=== PATIENT | female | born 1975 | race Caucasian/White ===

== ENCOUNTER 2018-03-24 08:44 | Day surgery (SDC) | payer MEDICAID ==
[2018-03-21 14:41] LABS: BASOPHILS # (AUTO) 0.1 X10'3 (0-0.2); BASOPHILS % (AUTO) 0.7 % (0-1); EOSINOPHILS # (AUTO) 0.2 X10'3 (0-0.9); EOSINOPHILS % (AUTO) 2.4 % (0-6); LYMPHOCYTES # (AUTO) 2.1 X10'3 (1.1-4.8); LYMPHOCYTES % (AUTO) 26.1 % (21-51); MEAN CORPUSCULAR HEMOGLOBIN 28.2 PG (27.0-31.0); MEAN CORPUSCULAR HGB CONC 33.7 % (33.0-36.5); MEAN CORPUSCULAR VOLUME 83.8 FL (78-98); MEAN PLATELET VOLUME 7.8 FL (7.4-10.4); MONOCYTES # (AUTO) 0.5 X10'3 (0-0.9); MONOCYTES % (AUTO) 6.5 % (2-12); NEUTROPHILS # (AUTO) 5.2 X10'3 (1.8-7.7); NEUTROPHILS % (AUTO) 64.3 % (42-75); PRE OP HEMATOCRIT 45.1 % (35.0-45.0); PRE OP HEMOGLOBIN 15.2 g/dL (12.0-16.0); PRE OP PLATELET COUNT 258 X10'3 (140-440); RED BLOOD COUNT 5.38 X10'6 (4.20-5.60); RED CELL DISTRIBUTION WIDTH 13.2 % (11.5-14.5)
[2018-03-21 14:54] LABS: HCG SERUM QL NEGATIVE
[2018-03-21 14:55] LABS: ALBUMIN 4.1 G/DL (3.4-5.0); ALBUMIN/GLOBULIN RATIO 1.2 (1.1-1.5); ALKALINE PHOSPHATASE 112 IU/L (46-116); BLOOD UREA NITROGEN 11 MG/DL (7-18); BUN/CREATININE RATIO 14.9 (6.6-38.0); CHLORIDE 104 MMOL/L (99-107); CREATININE 0.74 MG/DL (0.40-0.90); PRE OP ALT 35 U/L (30-65); PRE OP ANION GAP 11 (8-16); PRE OP AST 13 U/L (10-37); PRE OP BILIRUB, TOTAL 0.4 MG/DL (0.0-1.0); PRE OP GLUCOSE 100 MG/DL (70-104); PRE OP POTASSIUM 3.8 MMOL/L (3.4-5.1); PRE OP SODIUM 142 MMOL/L (135-145); TOTAL CARBON DIOXIDE 27.4 MMOL/L (24-32); TOTAL PROTEIN 7.5 G/DL (6.4-8.2); eGFR 85 ML/MIN
[2018-03-24] VITALS (7 sets, daily range): BP systolic 108–120; BP diastolic 70–80
[~2018-03-24] VITALS: Ht 170.2 cm; Wt 108.9 kg
[~2018-03-24 08:44] MED LIST: ALPR-160 PO; ATEN50TA23 PO; DOCUMENT DATE & TIME OF BETA-BLOCKER PO ONE; ENAL10TA PO; MEDR150V IM; PARO10TA4 PO; famotidine 20mg tablet PO ONE; ringers solution, lacted 1,000 ML IV SCH
[2018-03-24] MEDS ORDERED: BUPIVAcaine/PF 2.5mg/ml (0.25%) 10ml vial ONE (09:54)
[2018-03-24] MEDS ORDERED: midazolam 2 mg/2 ml injection ONE (10:58)
[2018-03-24] MEDS ORDERED: fentaNYL/PF 50MCG/1 ML 2ML syringe ONE ×2 (10:58→11:55)
[2018-03-24] MEDS ORDERED: dexamethasone sod phosphate 4mg/ml inj. ONE (11:12)
[2018-03-24] MEDS ORDERED: succinylcholine 20mg/ml inj IV ONE (11:12)
[2018-03-24] MEDS ORDERED: LIDOcaine 2% (20mg/ml) 5ml vial ONE (11:12)
[2018-03-24] MEDS ORDERED: rocuronium 10mg/ml inj IV ONE (11:12)
[2018-03-24] MEDS ORDERED: propofol inj 20 ML IV ONE (11:12)
[2018-03-24] MEDS ORDERED: ringers solution, lacted 1,000 ML IV SCH (11:43)
[2018-03-24] MEDS ORDERED: morphine 4 MG/ML inj SYRINge IV PRN ×2 (11:45)
[2018-03-24] MEDS ORDERED: meperidine/PF 25mg/ml syringe IV PRN ×3 (11:45)
[2018-03-24] MEDS ORDERED: proCHLORperazine 10 MG/2 ml inj IV PRN (11:45)
[2018-03-24] MEDS ORDERED: ondansetron/PF 4mg/2ml inj IV PRN (11:45)
[2018-03-24] MEDS ORDERED: ondansetron/PF 4mg/2ml inj ONE (11:57)
[2018-03-24] MEDS ORDERED: ketorolac trometh. 30mg/ml inj. ONE (11:57)
[2018-03-24] MEDS ORDERED: ePHEDrine 50MG/ML INJ. ONE (11:57)
[2018-03-24] MEDS ORDERED: neostigmine methylsulfate 1 MG/ML 10ml vial ONE (11:57)
[2018-03-24] MEDS ORDERED: glycopyrrolate 0.2mg/ml inj ONE (11:57)
[2018-03-24] MEDS ORDERED: HYDROcodone/acetaminophen 5mg/325mg tablet PO PRN ×2 (12:10)
--- NOTE | 2018-03-24 13:19 | NUR ---
AWAKE AND ORIENTED. VITALS STABLE. DRESSINGS DI. HIRA PAIN. HOME WITH FAMILY AT THIS TIME.
== END 2018-03-24 13:19 | disposition home or self-care (01) ==
LOC: PAS 08:44
PROVIDERS: ATTEND Obstetrics & Gynecology
DX: Z30.2 Encounter for sterilization (principal); I10 Essential (primary) hypertension; E66.9 Obesity, unspecified; K21.9 Gastro-esophageal reflux disease without esophagitis; F41.8 Other specified anxiety disorders; F12.11 Cannabis abuse, in remission; F15.11 Other stimulant abuse, in remission; Z90.89 Acquired absence of other organs; Z68.37 Body mass index [BMI] 37.0-37.9, adult; Z88.2 Allergy status to sulfonamides; Z90.49 Acquired absence of other specified parts of digestive tract; Z79.899 Other long term (current) drug therapy; Z98.890 Other specified postprocedural states; Z83.3 Family history of diabetes mellitus; Z82.49 Family history of ischemic heart disease and other diseases of the circulatory system
CPT/HCPCS: 36415; 58661; 80053; 82948; 84703; 85025; 86885; 86900; 86901; J0330; J1100; J1885; J2001; J2250; J2405; J2704; J2710; J3010; J3490; J7120; A6250